=== PATIENT | female | born 1990 | race Caucasian/White ===

== ENCOUNTER 2019-06-12 16:16 | Emergency (ER) | payer MEDICAID ==
[~2019-06-12] VITALS: Ht 165.1 cm; Wt 107.5 kg
[2019-06-12 16:38] VITALS: BP 118/70
--- NOTE | 2019-06-12 17:13 | NUR ---
28F C/O 10/10 HEADACHE, TOOTHACHE, RHEUMATOID ARTHRITIS PAIN X 2DAYS. STATES FILLING ON TOOTH ON LEFT SIDE FELL OUT 1 WEEK AGO, AND THAT SEEMS TO BE TRIGGERING MIGRAINE THE LAST 2 DAYS. STATES LEFT CHEEKS ARE SWOLLEN. STATES SHE HAS BEEN FEELING WARM BUT NO TEMP TAKEN AT HOME. DENIES N/V/D. STATES SHE RAN OUT OF TRAMADOL WHICH SHE TAKES FOR RA PAIN AND NOW IS EXPERIENCING PAIN FROM RA. HX: RA RX: TRAMADOL ALL: PCN
--- NOTE | 2019-06-12 17:15 | NUR ---
DR. MOORE EVALUATING PATIENT.
--- NOTE | 2019-06-12 17:58 | NUR ---
Patient discharged with v/s stable. Written and verbal after care instructions given and explained. Patient alert, oriented and verbalized understanding of instructions. Ambulatory with steady gait. All questions addressed prior to discharge. ID band removed. Patient advised to follow up with PMD. Rx of CLINDAMYCIN AND TRAMADOL given. Patient educated on indication of medication including possible reaction and side effects. Opportunity to ask questions provided and answered.
[2019-06-12 18:00] VITALS: BP 110/68
== END 2019-06-12 17:58 | disposition home or self-care (01) ==
LOC: MED 16:16
DX: R68.84 Jaw pain (principal); R51 Headache; M06.9 Rheumatoid arthritis, unspecified; Z88.0 Allergy status to penicillin
CPT/HCPCS: 99283

== ENCOUNTER 2020-07-21 19:37 | Emergency (ER) | payer MEDICAID ==
[~2020-07-21] VITALS: Ht 165.1 cm; Wt 119.3 kg
[2020-07-21 19:45] VITALS: BP 123/77
[2020-07-21] MEDS ORDERED: KETOROLAC 30 MG/ML VIAL IM ONE (20:35)
[2020-07-21 21:02] VITALS: BP 123/77
[2020-07-25 06:19] LABS: CHLAMYDIA TRACHOMATIS AMP DNA Negative (Negative)
== END 2020-07-21 21:02 | disposition home or self-care (01) ==
LOC: MED 19:37
DX: N39.0 Urinary tract infection, site not specified (principal); Z88.0 Allergy status to penicillin
CPT/HCPCS: 36415; 81002; 81025; 87491; 96372; 99283; J1885

== ENCOUNTER 2020-08-15 12:39 | Emergency (ER) | payer MEDICAID ==
[~2020-08-15] VITALS: Ht 165.1 cm; Wt 117.0 kg
[2020-08-15 12:43] VITALS: BP 118/71
--- NOTE | 2020-08-15 12:49 | NUR ---
AMB TO BED 12
--- NOTE | 2020-08-15 13:17 | NUR ---
PT IS 30 YO FEMALE PRESENTING WITH 10/10 BACK PAIN THAT RADIATES TO THE BUTTOCKS AND LEGS X2 MONTHS. PT DESCRIBES THE PAIN SHARP AND BURNING, LIKE PINS AND NEEDLES. SHE TAKES OTC MEDICATION BUT EXPERIENCES NO RELIEF. PT REPORTS BEING DIAGNOSED WITH UTI HERE AT [facility] 1 MONTH AGO AND TAKING ALL ANTIBIOTICS, BUT STILL HAS PAIN AND DIFFICULTY INITIATING URINE STREAM AT TIMES. PT REPORTS MILD NAUSEA RELATED TO PAIN, BUT DENIES VOMITING AND DIARRHEA. PT IS A&OX4. VSS. PT DENIES SOB. RESPIRATIONS ARE EVEN AND UNLABORED AT THIS TIME. HX: NO MEDICAL HISTORY ALLERGIES: PCN
[2020-08-15] MEDS ORDERED: KETOROLAC 15 MG/ML VIAL IVP ONE (13:25)
--- NOTE | 2020-08-15 13:45 | NUR ---
20G IV placed to left AC, blood drawn at this time and given to phleb.
[2020-08-15 14:10] LABS: APPEARANCE,URINE CLEAR (CLEAR); BILIRUBIN,URINE NEGATIVE (NEGATIVE); BLOOD, URINE 2+ (NEGATIVE); COLOR,URINE YELLOW (YELLOW); LEUKOCYTE ESTERASE ,URINE NEGATIVE (NEGATIVE); NITRITE, URINE NEGATIVE (NEGATIVE); UGLUCOSE NEGATIVE (NEGATIVE)
[2020-08-15 14:18] LABS: ALBUMIN 3.9 g/dL (3.4-5.0); ANION GAP 15.6 (8-16); CARBON DIOXIDE 27.2 mmol/L (21-32); CREATININE 0.8 mg/dL (0.6-1.3); POTASSIUM 3.8 mmol/L (3.5-5.1); TOTAL BILIRUBIN 0.1 mg/dL (0.0-1.0)
[2020-08-15 14:22] LABS: BASOPHILS # (AUTO) 0.1 K/uL (0.00-0.22); BASOPHILS % (AUTO) 1.7 % (0.0-2.0); EOSINOPHILS # (AUTO) 0.1 K/uL (0-0.4); EOSINOPHILS % (AUTO) 1.2 % (0.0-4.0); HEMATOCRIT 39.6 % (36-48); LYMPHOCYTES # (AUTO) 2.4 K/uL (2.5-16.5); LYMPHOCYTES % (AUTO) 29.1 % (20.5-51.1); MEAN CORPUSCULAR HEMOGLOBIN 29 pg (27-31); MEAN CORPUSCULAR HGB CONC 33 g/dL (33-37); MEAN CORPUSCULAR VOLUME 88.7 fL (80-94); MONOCYTES # (AUTO) 0.4 K/uL (0.8-1.0); MONOCYTES % (AUTO) 5.2 % (1.7-9.3); NEUTROPHILS # (AUTO) 5.2 K/uL (1.8-7.7); NEUTROPHILS % (AUTO) 62.8 % (42.2-75.2); PLATELET COUNT (AUTO) 247 K/uL (140-450); RED BLOOD CELL COUNT(AUTO) 4.46 MIL/uL (4.20-5.40); WHITE BLOOD COUNT (AUTO) 8.2 K/uL (4.8-10.8)
[2020-08-15 14:26] LABS: RBC,URINE 11-20 (MOD) /HPF (0-5)
--- NOTE | 2020-08-15 14:59 | NUR ---
Patient returned from CT scan.
[2020-08-15 16:44] VITALS: BP 106/57
--- NOTE | 2020-08-15 16:46 | NUR ---
Patient discharged with v/s stable. Written and verbal after care instructions given and explained. Patient alert, oriented and verbalized understanding of instructions. Ambulatory with steady gait. All questions addressed prior to discharge. ID band removed. Patient advised to follow up with PMD. Rx of NORCO, MOTRIN given. Patient educated on indication of medication including possible reaction and side effects. Opportunity to ask questions provided and answered.
== END 2020-08-15 16:46 | disposition home or self-care (01) ==
LOC: MED 12:39
DX: M54.42 Lumbago with sciatica, left side (principal); M54.41 Lumbago with sciatica, right side; Z88.0 Allergy status to penicillin
CPT/HCPCS: 36415; 72132; 74177; 80053; 81001; 81025; 85025; 87086; 96374; 99285; J1885; Q9967

== ENCOUNTER 2020-09-16 08:39 | Emergency (ER) | payer MEDICAID ==
[~2020-09-16] VITALS: Ht 170.2 cm; Wt 124.7 kg
[2020-09-16 08:41] VITALS: BP 117/58
--- NOTE | 2020-09-16 08:46 | NUR ---
Patient ambulated to bed 5. RN evaluating patient at bedside.
--- NOTE | 2020-09-16 08:59 | NUR ---
30 y/o female biba from home c/o right hip pain that radiates to right foot x 3 months. Pt states she was diagnosed with sciatica and pain increases when she runs out of pain medications. Pt able to abmulate with steady gait. 10/10 sharp/shooting pain. Skin warm, dry, intact. medhx: sciatica, seizures
--- NOTE | 2020-09-16 09:12 | NUR ---
Dr. Edmondson is evaluating the patient at bedside.
[2020-09-16] MEDS ORDERED: KETOROLAC 60 MG/2 ML VIAL IM ONE (09:20)
--- NOTE | 2020-09-16 09:30 | NUR ---
Pt taken to CT scan via wheelchair
--- NOTE | 2020-09-16 10:11 | NUR ---
Pt resting comfortably, HOB elevated, VSS will continue to monitor.
--- NOTE | 2020-09-16 10:47 | NUR ---
Pt ambulated to restroom.
[2020-09-16 10:57] VITALS: BP 120/64
--- NOTE | 2020-09-16 10:58 | NUR ---
Patient discharged with v/s stable. Written and verbal after care instructions given and explained. Patient alert, oriented and verbalized understanding of instructions. Ambulatory with steady gait. All questions addressed prior to discharge. ID band removed. Patient advised to follow up with PMD. Rx of Naprosyn 375mg given. Patient educated on indication of medication including possible reaction and side effects. Opportunity to ask questions provided and answered.
== END 2020-09-16 10:58 | disposition home or self-care (01) ==
LOC: MED 08:39
DX: M51.17 Intervertebral disc disorders with radiculopathy, lumbosacral region (principal); M51.26 Other intervertebral disc displacement, lumbar region; Z88.0 Allergy status to penicillin; Z98.890 Other specified postprocedural states
CPT/HCPCS: 72131; 81002; 81025; 96372; 99284; J1885

== ENCOUNTER 2020-10-11 09:06 | Emergency (ER) | payer MEDICAID ==
[~2020-10-11] VITALS: Ht 165.1 cm; Wt 111.1 kg
--- NOTE | 2020-10-11 09:06 | NUR ---
Patient BIBA BLS, transferred to chair C. RN evaluating patient at bedside.
[2020-10-11 09:07] VITALS: BP 100/70
--- NOTE | 2020-10-11 09:09 | NUR ---
30 y/o female biba bls c/o lower back pain that radiates to bilateral lower extremities x 6 months. Pt denies trauma/injury. Possible hx of sciatica. 10 sharp/shooting pain. Skin warm, dry, intact. Awake and alert. VSS
--- NOTE | 2020-10-11 09:18 | NUR ---
Dr Banks at chairside examining patient
--- NOTE | 2020-10-11 09:24 | NUR ---
Patient ambulated to restroom for collection of urine
[2020-10-11] MEDS ORDERED: KETOROLAC 30 MG/ML VIAL IM ONE (09:40)
[2020-10-11] MEDS ORDERED: ACETAMINOPHEN EXTRA STRENGTH 500 MG TAB PO ONE (09:40)
[2020-10-11] MEDS ORDERED: HYDROcodone/APAP 5/325 MG 1 TAB TAB PO SCH (10:00)
--- NOTE | 2020-10-11 10:05 | NUR ---
Patient refused tylenol stating "i did not come to the hospital just to receieve tylenol". Dr Banks made aware
[2020-10-11 10:37] VITALS: BP 100/70
--- NOTE | 2020-10-11 10:38 | NUR ---
Patient discharged with v/s stable. Written and verbal after care instructions given and explained. Patient alert, oriented and verbalized understanding of instructions. Ambulatory with steady gait. All questions addressed prior to discharge. ID band removed. Patient advised to follow up with PMD. Rx of [place] 5mg-325mg and Ibuprofen 400 given. Patient educated on indication of medication including possible reaction and side effects. Opportunity to ask questions provided and answered.
== END 2020-10-11 10:38 | disposition home or self-care (01) ==
LOC: MED 09:06
DX: M54.40 Lumbago with sciatica, unspecified side (principal); M51.26 Other intervertebral disc displacement, lumbar region
CPT/HCPCS: 81002; 81025; 96372; 99283; J1885

== ENCOUNTER 2023-11-30 11:22 | Emergency (ER) | payer MEDICAID ==
[~2023-11-30] VITALS: Ht 172.7 cm; Wt 122.5 kg
[2023-11-30 11:25] VITALS: BP 123/65; PULSE 117; RESP 17; TEMP 98.1; O2SAT 98
[2023-11-30] MEDS ORDERED: KETOROLAC 30 MG/ML VIAL IM ONE (12:00)
[2023-11-30] MEDS ORDERED: LIDOCAINE 5% 1 EA PATCH TP ONE (12:00)
[2023-11-30] MEDS ORDERED: IBUP-2213 PO (12:47)
[2023-11-30] MEDS ORDERED: LID5T TP (12:47)
[2023-11-30] MEDS ORDERED: CYCL-711 PO (12:47)
[2023-11-30 13:03] VITALS: BP 122/82; PULSE 100; RESP 16; TEMP 98; O2SAT 100
== END 2023-11-30 13:03 | disposition home or self-care (01) ==
LOC: MED 11:22
DX: S02.5XXA Fracture of tooth (traumatic), initial encounter for closed fracture (principal); S39.012A Strain of muscle, fascia and tendon of lower back, initial encounter; X58.XXXA Exposure to other specified factors, initial encounter; Y93.89 Activity, other specified; Y92.89 Other specified places as the place of occurrence of the external cause; Y99.8 Other external cause status
CPT/HCPCS: 96372; 99283; J1885